=== PATIENT | male | born 1975 | race Caucasian/White ===

== ENCOUNTER 2017-08-18 19:34 | Emergency (ER) | payer SELFPAY ==
--- NOTE | 2017-08-18 20:07 | ER Document Report ---
ED Medical Screen (RME) - General Stated Complaint: PSYCH EVAL Time Seen by Provider: 08/18/17 20:05 Mode of Arrival: Ambulatory Information source: Patient Notes: Patient presents complaining of increased stress in his life recently. Patient reports suicidal ideation as well as homicidal ideation. Patient denies having any formal plan. Patient does report a previous history of suicide attempt in the past. Patient does have a history of anxiety, depression, PTSD and hypertension. Patient denies any history of substance abuse - Related Data Allergies/Adverse Reactions: Sulfa (Sulfonamide Antibiotics) Allergy (Verified 09/07/12 11:32) Past Medical History Past Surgical History: Reports: Hx Appendectomy, Hx Oral Surgery, Hx Orthopedic Surgery - left shoulder - Immunizations Hx Diphtheria, Pertussis, Tetanus Vaccination: Yes Physical Exam - Psychological Associated symptoms: Depressed
[2017-08-18 20:46] LABS: ABSOLUTE EOSINOPHILS # (AUTO) 0.2 10^3/uL (0.0-0.6); ABSOLUTE LYMPHOCYTES (AUTO) 2.7 10^3/uL (0.5-4.7); ABSOLUTE MONOCYTES (AUTO) 0.8 10^3/uL (0.1-1.4); ABSOLUTE NEUT (AUTO) 6.1 10^3/uL (1.7-8.2); BASOPHILS % (AUTO) 0.5 % (0-2); EOSINOPHILS % (AUTO) 2.4 % (0-6); HEMATOCRIT 43.8 % (37.9-51.0); HEMOGLOBIN 15.5 g/dL (13.5-17.0); HGB HCT DIFFERENCE 2.7; LYMPHOCYTES % (AUTO) 27.2 % (13-45); MEAN CORPUSCULAR HEMOGLOBIN 29.9 pg (27.0-33.4); MEAN CORPUSCULAR HGB CONC 35.5 g/dL (32.0-36.0); MEAN CORPUSCULAR VOLUME 84 fl (80-97); MONOCYTES % (AUTO) 8.5 % (3-13); RED BLOOD COUNT 5.19 10^6/uL (4.35-5.55); RED CELL DISTRIBUTION WIDTH 12.9 % (11.5-14.0); SEGMENTED NEUTROPHILS % (AUTO) 61.4 % (42-78); WHITE BLOOD COUNT 9.9 10^3/uL (4.0-10.5)
[2017-08-18 20:49] LABS: APPEARANCE,URINE SLIGHTLY-CLOUDY; BILIRUBIN,URINE NEGATIVE (NEGATIVE); GLUCOSE, URINE NEGATIVE (NEGATIVE); KETONES,URINE 20 mg/dL (NEGATIVE); LEUKOCYTE ESTERASE,URINE NEGATIVE (NEGATIVE); NITRITE,URINE NEGATIVE (NEGATIVE); PROTEIN,URINE NEGATIVE (NEGATIVE); URINE SPECIFIC GRAVITY 1.018; UROBILINOGEN,URINE NEGATIVE mg/dL (<2.0)
[2017-08-18 21:00] LABS: WBC,URINE 0-1 /HPF
[2017-08-18 21:08] LABS: ALANINE AMINOTRANSFERASE 37 U/L (21-72); ALBUMIN 4.4 g/dL (3.5-5.0); ALKALINE PHOSPHATASE 73 U/L (38-126); ANION GAP 11 (5-19); ASPARTATE AMINO TRANSFERASE 23 U/L (17-59); BILIRUBIN,DIRECT 0.2 mg/dL (0.0-0.4); BILIRUBIN,TOTAL 0.4 mg/dL (0.2-1.3); BLOOD UREA NITROGEN 22 mg/dL (7-20); CALCIUM 9.5 mg/dL (8.4-10.2); CARBON DIOXIDE 27 mmol/L (22-30); CHLORIDE 103 mmol/L (98-107); GLUCOSE 90 mg/dL (75-110); POTASSIUM 3.9 mmol/L (3.6-5.0); SODIUM 141.2 mmol/L (137-145); TOTAL PROTEIN 6.9 g/dL (6.3-8.2)
[2017-08-18 21:09] LABS: ALCOHOL < 10 mg/dL (NONE DETECTED); URINE BARBITURATES SCREEN NEGATIVE; URINE METHADONE SCREEN NEGATIVE; URINE OPIATES LOW NEGATIVE; URINE PHENCYCLIDINE SCREEN NEGATIVE
--- NOTE | 2017-08-18 21:37 | EKG REPORT ---
SEVERITY:- OTHERWISE NORMAL ECG - SINUS RHYTHM BORDERLINE LEFT AXIS DEVIATION : Confirmed by: Cleveland Pollack 18-Aug-2017 21:36:33
--- NOTE | 2017-08-18 23:16 | ER Document Report ---
ED General - General Chief Complaint: Suicidal Ideation Stated Complaint: PSYCH EVAL Time Seen by Provider: 08/18/17 20:05 Mode of Arrival: Ambulatory Notes: Patient is a 42-year-old male with past medical history of PTSD, depression, anxiety, all currently untreated who presents with suicidal ideation. She reports that today he went to work, brought his gun with him which he typically does. He states that he was sitting in his office today and gradually began to feel increasingly suicidal "like I just did not want to be alive anymore". States that his memory around this event is somewhat blurred and he feels that he may have "blacked out". However he does report that he remembers holding the gun in his hand and possibly to his head. He states that he believes he thought about his children and this caused him to put the gun back into his bag and get in his truck. He states he then drove around looking for a precinct police lieutenant as he wanted them to kill him. He states he plan to get out of the truck, not harmed please officer but hold the gun out in a threatening manner which would trigger them to shoot him. He reports however he was unable to locate a precinct police lieutenant. He then called his friend Dewey who is at the bedside with him and when his friend asked him if he was okay he replied no. His friend apparently came to find him and brought him here to the emergency department. Patient has been hospitalized once in the past in 2011 for suicidal ideation. He states he has been off all medications and is not currently following with psychiatry. These medications were apparently discontinued by the provider not the patient. He denies any alcohol or drug use today or in the recent past. He does have access to them multitude of guns. TRAVEL OUTSIDE OF THE [place] IN LAST 30 DAYS: No - Related Data Allergies/Adverse Reactions: Sulfa (Sulfonamide Antibiotics) Allergy (Verified 09/07/12 11:32) Home Medications: Current Home Medications RX: No Home Medications 08/18/17 [History] Past Medical History - General Information source: Patient - Social History Smoking Status: Never Smoker Chew tobacco use (# tins/day): No Frequency of alcohol use: None Drug Abuse: None Lives with: Spouse/Significant other Family History: Reviewed & Not Pertinent Patient has suicidal ideation: Yes Patient has homicidal ideation: No - Past Medical History Cardiac Medical History: Reports: Hx Hypertension Renal/ Medical History: Denies: Hx Peritoneal Dialysis Psychiatric Medical History: Reports: Hx Depression Past Surgical History: Reports: Hx Appendectomy, Hx Oral Surgery, Hx Orthopedic Surgery - left shoulder - Immunizations Hx Diphtheria, Pertussis, Tetanus Vaccination: Yes Review of Systems - Review of Systems Notes: Constitutional: Negative for fever. HENT: Negative for sore throat. Eyes: Negative for visual changes. Cardiovascular: Negative for chest pain. Respiratory: Negative for shortness of breath. Gastrointestinal: Negative for abdominal pain, vomiting or diarrhea. Genitourinary: Negative for dysuria. Musculoskeletal: Negative for back pain. Skin: Negative for rash. Neurological: Negative for headaches, weakness or numbness. 10 point ROS negative except as marked above and in HPI. Physical Exam - Vital signs Vitals: Temp Pulse Resp BP Pulse Ox 98.5 F 57 L 16 170/96 H 97 08/18/17 20:08 08/18/17 20:08 08/18/17 20:08 08/18/17 20:08 08/18/17 20:08 Interpretation: Hypertensive, Bradycardic Notes: PHYSICAL EXAMINATION: GENERAL: Well-appearing, well-nourished and in no acute distress. HEAD: Atraumatic, normocephalic. EYES: Pupils equal round and reactive to light, extraocular movements intact, sclera anicteric, conjunctiva are normal. ENT: nares patent, oropharynx clear without exudates. Moist mucous membranes. NECK: Normal range of motion, supple without lymphadenopathy LUNGS: Breath sounds clear to auscultation bilaterally and equal. No wheezes rales or rhonchi. HEART: Regular rate and rhythm without murmurs ABDOMEN: Soft, nontender, normoactive bowel sounds. No guarding, no rebound. No masses appreciated. EXTREMITIES: Normal range of motion, no pitting or edema. No cyanosis. NEUROLOGICAL: No focal neurological deficits. Moves all extremities spontaneously and on command. PSYCH: Intermittently tearful, appropriate insight. Continues to express suicidal ideation SKIN: Warm, Dry, normal turgor, no rashes or lesions noted. Course - Re-evaluation Re-evalutation: 08/18/17 23:11 Patient presents acutely suicidal, plan to kill himself using a gun. Patient has many, highly concerning features to his history including ready access to firearms, a spontaneous plan to harm himself today, and ongoing suicidality at this time stating that if he could kill himself right now he would. I believe this patient will require inpatient psychiatric stabilization. He has a history of PTSD, prior suicide thoughts but no prior attempts. He denies any acute medical complaints. A medical screening exam and labs are unremarkable. Will give him a small dose of trazodone here in the emergency department assist with sleep. He is medically cleared for evaluation by psychiatry in the morning. - Vital Signs Vital signs: Temp Pulse Resp BP Pulse Ox 98.5 F 74 16 159/89 H 99 08/18/17 20:08 08/19/17 00:05 08/19/17 00:05 08/19/17 00:05 08/19/17 00:05 - Laboratory Result Diagrams: 08/18/17 20:35 08/18/17 20:35 Laboratory results interpreted by me: 08/18/17 08/18/17 20:35 20:35 BUN 22 H Urine Ketones 20 H Salicylates < 1.0 L Acetaminophen < 10 L - EKG Interpretation by Me Additional EKG results interpreted by me: 08/19/17 03:01 Sinus bradycardia. Rate 55. No ST elevations or depressions. QTC is 394. Discharge - Discharge Clinical Impression: Suicidal ideation Condition: Fair Disposition: PSYCH HOSP/UNIT
[2017-08-18] MEDS ORDERED: TRAZODONE HCL 50 MG TABLET PO ONE (23:25)
--- NOTE | 2017-08-19 09:00 | ER Document Report ---
ED Medical Screen (RME) - General Chief Complaint: Suicidal Ideation Stated Complaint: PSYCH EVAL Time Seen by Provider: 08/18/17 20:05 Mode of Arrival: Ambulatory TRAVEL OUTSIDE OF THE [place] IN LAST 30 DAYS: No - Related Data Allergies/Adverse Reactions: Sulfa (Sulfonamide Antibiotics) Allergy (Verified 09/07/12 11:32) Home Medications: Current Home Medications No Home Medications 08/18/17 [History] Past Medical History - Social History Chew tobacco use (# tins/day): No Frequency of alcohol use: None Drug Abuse: None - Past Medical History Cardiac Medical History: Reports: Hx Hypertension Renal/ Medical History: Denies: Hx Peritoneal Dialysis Psychiatric Medical History: Reports: Hx Depression Past Surgical History: Reports: Hx Appendectomy, Hx Oral Surgery, Hx Orthopedic Surgery - left shoulder - Immunizations Hx Diphtheria, Pertussis, Tetanus Vaccination: Yes Physical Exam - Vital signs Vitals: Temp Pulse Resp BP Pulse Ox 98.5 F 57 L 16 170/96 H 97 08/18/17 20:08 08/18/17 20:08 08/18/17 20:08 08/18/17 20:08 08/18/17 20:08 Course - Re-evaluation Re-evalutation: 08/19/17 09:00 As the [facility] emergency physician I examined this patient. I reviewed the patient's chart. The patient is currently resting comfortably and requires no acute medical intervention. Disposition per psychiatry. - Vital Signs Vital signs: Temp Pulse Resp BP Pulse Ox 97.6 F 62 16 145/87 H 96 08/19/17 08:35 08/19/17 08:35 08/19/17 08:35 08/19/17 08:35 08/19/17 08:35 - Laboratory Result Diagrams: 08/18/17 20:35 08/18/17 20:35 Laboratory results interpreted by me: 08/18/17 08/18/17 20:35 20:35 BUN 22 H Urine Ketones 20 H Salicylates < 1.0 L Acetaminophen < 10 L Doctor's Discharge - Discharge Clinical Impression: Suicidal ideation Condition: Fair Disposition: PSYCH HOSP/UNIT
[2017-08-19] MEDS: BUSPIRONE HCL 10 MG TABLET PO SCH (18:14)
[2017-08-19] MEDS ORDERED: SERTRALINE HCL 50 MG TABLET PO SCH (22:00)
[2017-08-19] MEDS ORDERED: CLONIDINE HCL 0.1 MG TABLET PO SCH (22:00)
--- NOTE | 2017-08-20 08:54 | ER Document Report ---
ED Medical Screen (RME) - General Chief Complaint: Suicidal Ideation Stated Complaint: PSYCH EVAL Time Seen by Provider: 08/18/17 20:05 Mode of Arrival: Ambulatory TRAVEL OUTSIDE OF THE [place] IN LAST 30 DAYS: No - Related Data Allergies/Adverse Reactions: Sulfa (Sulfonamide Antibiotics) Allergy (Verified 09/07/12 11:32) Home Medications: Current Home Medications No Home Medications 08/18/17 [History] Past Medical History - Social History Chew tobacco use (# tins/day): No Frequency of alcohol use: None Drug Abuse: None - Past Medical History Cardiac Medical History: Reports: Hx Hypertension Renal/ Medical History: Denies: Hx Peritoneal Dialysis Psychiatric Medical History: Reports: Hx Depression Past Surgical History: Reports: Hx Appendectomy, Hx Oral Surgery, Hx Orthopedic Surgery - left shoulder - Immunizations Hx Diphtheria, Pertussis, Tetanus Vaccination: Yes Physical Exam - Vital signs Vitals: Temp Pulse Resp BP Pulse Ox 98.5 F 57 L 16 170/96 H 97 08/18/17 20:08 08/18/17 20:08 08/18/17 20:08 08/18/17 20:08 08/18/17 20:08 Course - Re-evaluation Re-evalutation: 08/20/17 08:53 As the [facility] emergency physician I examined this patient. I reviewed the patient's chart. The patient is currently resting comfortably and requires no acute medical intervention. Disposition per psychiatry. - Vital Signs Vital signs: Temp Pulse Resp BP Pulse Ox 97.5 F 64 18 161/98 H 98 08/20/17 07:30 08/20/17 07:30 08/20/17 07:30 08/20/17 07:30 08/20/17 07:30 - Laboratory Result Diagrams: 08/18/17 20:35 08/18/17 20:35 Laboratory results interpreted by me: 08/18/17 08/18/17 20:35 20:35 BUN 22 H Urine Ketones 20 H Salicylates < 1.0 L Acetaminophen < 10 L Doctor's Discharge - Discharge Clinical Impression: Suicidal ideation Condition: Fair Disposition: PSYCH HOSP/UNIT
[2017-08-20] MEDS: BUSPIRONE HCL 10 MG TABLET PO SCH (10:06)
--- NOTE | 2017-08-20 11:01 | PSYCHOLOGICAL NOTE ---
Psych Note - Psych Note Psych Note: Patient is a 42-year-old male with past medical history of PTSD, depression, anxiety, all currently untreated who presents with suicidal ideation. She reports that today he went to work, brought his gun with him which he typically does. He states that he was sitting in his office today and gradually began to feel increasingly suicidal "like I just did not want to be alive anymore". Patient disclosed that he has a history of PTSD. He stated; "something triggered me I do not know what it was all of a sudden I felt very overwhelmed with anxiety... I was not thinking rationally." Patient disclosed that he pulled his gun out (patient has concealed carry permit and always carries) he was thinking about killing himself. Patient states that his job has been stressful but does not feel that this was the underlying cause. He continued disclosed that the only reason he ended up not pulling the trigger was a picture of his children sitting on his desk. Patient reports that he is stared at his children's picture and thought of them and stopped himself. Patient reports leaving his office and driving around and started to feel that he "did not have the guts to pull the trigger so I started to look for endoscopy technican not because I would never do anything to harm them because I was hoping they would do it for me.... I am tired... I have no reason or purpose." Patient states that while he was driving around looking for police patrol lieutenant he ended up calling his friend who met him at a gas station. Patient's friend removed the weapon from his possession and brought him to [facility] ED. Patient confirms that he has had one previous psychiatric inpatient treatment in 2011 right after getting out of the . He reports he sleeps approximately 3-4 hours night and one possible sleepwalking episode approximately 4-5 months ago. Patient is alert and orientated to person, place, time and circumstance. Mood is dysphoric with tearful affect. Patient endorses suicidal ideation with plans. Patient plan is reported to shooting himself patient does have access to multiple weapons. Patient secondary plan was suicide by endoscopy technican after he was unable to pull the trigger. Patient denies homicidal ideation. Patient denies auditory visual hallucinations. Delusions are absent behaviors congruent with intact reality based presentation i.e. organized and linear thinking. Eye contact was fair. Intellectual abilities appear to be within the average range. Conversational speech was within normal rate, tone and prosody. Attention and concentration were good. Insight, judgment, impulse control is currently poor. 309.81 (F43.10) post oh manic stress disorder per history provided by patient 300.00 (4 1.9) unspecified anxiety disorder per history provided by patient 311 (F32.9) unspecified depressive disorder per history provided by patient Impression\\plan: Patient is recommended to continue under IVC. Patient is currently danger to self and others. Patient discloses suicidal plan with means. Patient disclosed that he had difficulty pulling the trigger so came up with a secondary plan of suicide by endoscopy technican. Patient was halted in his plan because his friend met him at the gas station. Patient will be re-evaluated. Dr. Cui was consulted and the care and management of this patient; attending physician is agreement with recommendations and disposition.
--- NOTE | 2017-08-20 11:12 | PSYCHOLOGICAL NOTE ---
Psych Note - Psych Note Psych Note: Patient is a 42-year-old male with past medical history of PTSD, depression, anxiety, all currently untreated who presents with suicidal ideation. She reports that today he went to work, brought his gun with him which he typically does. He states that he was sitting in his office today and gradually began to feel increasingly suicidal "like I just did not want to be alive anymore". Clinician conducted checking with patient: Patient is observed to have tearful affect, sitting up calmly in the bed with the TV off. She confirms he has been sitting in thinking today. Patient feels that he needs to make some changes in his life but is unsure what to do. Patient disclosed that he may need to either move out of local area or get a new job. Patient reports the pistol he had previous evening is in the position of his friend Dewey. He continued to report his only other weapon is a shotgun and confirms he has no problem with his friend Dewey also taking possession of this weapon. Patient discloses his girlfriend is a nurse and has stated that he can live with her. 309.81 (F43.10) post traumatic stress disorder per history provided by patient 300.00 (4 1.9) unspecified anxiety disorder per history provided by patient 311 (F32.9) unspecified depressive disorder per history provided by patient Impression\\plan: Patient is recommended to continue under IVC. Patient is currently danger to self and others. Patient discloses suicidal plan with means. Patient disclosed that he had difficulty pulling the trigger so came up with a secondary plan of suicide by news copy editor. Patient was halted in his plan because his friend met him at the gas station. Patient will be re-evaluated. Dr. Cui was consulted and the care and management of this patient; attending physician is agreement with recommendations and disposition.
[2017-08-20] MEDS ORDERED: CLONIDINE HCL 0.1 MG TABLET PO ONE (15:15)
[2017-08-20 15:16] VITALS: BP 182/122
== END 2017-08-20 15:59 ==
LOC: ER 19:34
DX: R45.851 Suicidal ideations (principal); R45.850 Homicidal ideations; I10 Essential (primary) hypertension; F43.10 Post-traumatic stress disorder, unspecified; F41.9 Anxiety disorder, unspecified; F32.9 Major depressive disorder, single episode, unspecified; Z88.2 Allergy status to sulfonamides
CPT/HCPCS: 36415; 80053; 80307; 81001; 85025; 93005; 93010; 99285

== ENCOUNTER 2020-09-10 19:26 | Emergency (ER) | payer OTHER ==
[2020-09-10] MEDS ORDERED: TETRACAINE HCL 0.5% OPH SOLN 4 ML OS ONE (20:03)
--- NOTE | 2020-09-10 20:15 | ER Document Report ---
ED Medical Screen (RME) - General Chief Complaint: Eye Pain Stated Complaint: LEFT EYE PAIN AND PRESSURE Time Seen by Provider: 09/10/20 19:59 Mode of Arrival: Ambulatory Information source: Patient Notes: 45-year-old male presented to ED for complaint of left eye pain. He was seen at urgent care today and was diagnosed with conjunctivitis. He was given a prescription for antibiotic steroid and a pain medicine. He did get the antibiotics and the steroid but was unable to get the pain medicine until tomorrow. I did speak with Dr. Paul and she stated that he would need a full exam before we can give him any new prescriptions. I will order drop of tetracaine to help with the pain until he is examined. I have greeted and performed a rapid initial assessment of this patient. A comprehensive ED assessment and evaluation of the patient, analysis of test results and completion of medical decision making process will be conducted by an additional ED providers. TRAVEL OUTSIDE OF THE [place] IN LAST 30 DAYS: No - Related Data Allergies/Adverse Reactions: Sulfa (Sulfonamide Antibiotics) Allergy (Verified 09/07/12 11:32) Home Medications: pred forte, polymxin, chlorthalidone Past Medical History - Social History Frequency of alcohol use: Rare Drug Abuse: None - Past Medical History Cardiac Medical History: Reports: Hx Hypertension Renal/ Medical History: Denies: Hx Peritoneal Dialysis Psychiatric Medical History: Reports: Hx Depression Past Surgical History: Reports: Hx Appendectomy, Hx Oral Surgery, Hx Orthopedic Surgery - left shoulder - Immunizations Hx Diphtheria, Pertussis, Tetanus Vaccination: Yes Physical Exam - Vital signs Vitals: Temp Pulse Resp BP Pulse Ox 98.2 F 66 20 200/110 H 97 09/10/20 21:50 09/10/20 21:50 09/10/20 21:50 09/10/20 21:50 09/10/20 21:50 Course - Vital Signs Vital signs: Temp Pulse Resp BP Pulse Ox 98.2 F 66 20 200/110 H 97 09/10/20 21:50 09/10/20 21:50 09/10/20 21:50 09/10/20 21:50 09/10/20 21:50
--- NOTE | 2020-09-11 06:23 | ER Document Report ---
ED General - General Chief Complaint: Eye Pain Stated Complaint: LEFT EYE PAIN AND PRESSURE Time Seen by Provider: 09/10/20 19:59 Primary Care Provider: [facility] [Primary [facility]] - Follow up as needed Mode of Arrival: Ambulatory Notes: Patient presents to the ER for evaluation of left eye pain with blurred vision that began approximately 630 this evening. He was initially seen by urgent care and diagnosed with conjunctivitis. He states he was placed on an antibiotic eyedrop and a steroid eyedrop. He denies purulent discharge from the eye. He denies matting. He does wear glasses for vision correction. Nursing notes reviewed and past medical, social, and family histories reviewed and validated. TRAVEL OUTSIDE OF THE [place] IN LAST 30 DAYS: No - Related Data Allergies/Adverse Reactions: Sulfa (Sulfonamide Antibiotics) Allergy (Verified 09/07/12 11:32) Home Medications: pred forte, polymxin, chlorthalidone Past Medical History - General Information source: Patient - Social History Smoking Status: Never Smoker Chew tobacco use (# tins/day): No Frequency of alcohol use: Rare Drug Abuse: None Lives with: Family Family History: Reviewed & Not Pertinent Patient has suicidal ideation: No Patient has homicidal ideation: No - Past Medical History Cardiac Medical History: Reports: Hx Hypertension Pulmonary Medical History: Reports: None EENT Medical History: Reports: None Neurological Medical History: Reports: None Endocrine Medical History: Reports: None Renal/ Medical History: Reports: None. Denies: Hx Peritoneal Dialysis Malignancy Medical History: Reports None GI Medical History: Reports: None Musculoskeletal Medical History: Reports None Skin Medical History: Reports None Psychiatric Medical History: Reports: Hx Depression Traumatic Medical History: Reports: None Infectious Medical History: Reports: None Past Surgical History: Reports: Hx Appendectomy, Hx Oral Surgery, Hx Orthopedic Surgery - left shoulder - Immunizations Immunizations up to date: Yes Hx Diphtheria, Pertussis, Tetanus Vaccination: Yes Review of Systems - Review of Systems Notes: Constitutional: Negative for fever. HENT: Negative for sore throat. Eyes: Positive for visual changes. Positive for eye pain. Cardiovascular: Negative for chest pain. Respiratory: Negative for shortness of breath. Gastrointestinal: Negative for abdominal pain, vomiting or diarrhea. Genitourinary: Negative for dysuria. Musculoskeletal: Negative for back pain. Skin: Negative for rash. Neurological: Negative for headaches, weakness or numbness. 10 point ROS negative except as marked above and in HPI. Physical Exam - Vital signs Vitals: Temp Pulse Resp BP Pulse Ox 98.2 F 66 20 200/110 H 97 09/10/20 21:50 09/10/20 21:50 09/10/20 21:50 09/10/20 21:50 09/10/20 21:50 - Notes Notes: CONSTITUTIONAL: Well appearing in no acute distress SKIN: Warm, dry, and intact without rash EYES: Extraocular movements are grossly intact. The conjunctiva to the left eye is injected. PERRLA. Upon fluorescein exam, there are no ulcerations or abrasions to the cornea. Using the Bharath-Pen, I obtained a pressure in the left eye of 55 with a 95% accuracy rating. HENT: Normocephalic, atraumatic, moist mucus membranes NECK: No obvious swelling, normal range of motion PULMONARY: Normal chest rise and fall, no respiratory distress or stridor CARDIOVASCULAR: Regular rate, distal extremities are warm and well perfused NEUROLOGIC: Normal speech, moves all extremities MUSCULOSKELETAL: No gross deformities, atraumatic PSYCHIATRIC: Normal mood and affect Course - Re-evaluation Re-evalutation: 09/11/20 06:15 This case was discussed with Dr. Iniguez who agrees to evaluate this patient in his office at 830 this morning. I discussed this plan with the patient who agrees to follow-up as discussed. - Vital Signs Vital signs: Temp Pulse Resp BP Pulse Ox 98.3 F 60 20 152/97 H 97 09/11/20 02:51 09/11/20 02:51 09/10/20 21:50 09/11/20 02:51 09/11/20 02:51 - Laboratory Results Critical Laboratory Results Reviewed: No Critical Results - Radiology Results Critical Radiology Results Reviewed: No Critical Results Discharge - Discharge Clinical Impression: Elevated Occular Pressure Left Eye, Left eye pain Condition: Stable Disposition: HOME, SELF-CARE Instructions: Glaucoma ([facility]) Additional Instructions: It is important that you follow up with Dr. Iniguez at 8:30 this morning. Call his office promptly at 8:30am. Referrals: [facility] [Primary Care Provider] - Follow up as needed REINA INIGUEZ DO [ACTIVE STAFF] - 09/11/20 8:30 am
[2020-09-11 06:42] VITALS: BP 163/109
== END 2020-09-11 06:42 | disposition home or self-care (01) ==
LOC: ER 19:26
DX: H40.052 Ocular hypertension, left eye (principal); H10.9 Unspecified conjunctivitis; H57.11 Ocular pain, right eye; Z79.899 Other long term (current) drug therapy; Z88.2 Allergy status to sulfonamides
CPT/HCPCS: 99283; J3490